=== PATIENT | male | born 1940 | race Caucasian/White ===

== ENCOUNTER 2024-10-21 16:24 | Inpatient (IN) | payer MEDICARE, SELFPAY ==
[2024-10-21] VITALS (16 sets, daily range): BP systolic 125–167; BP diastolic 49–117; BMI 25.1
--- NOTE | 2024-10-21 13:19 | W.PN.CARDCBS ---
Today's Communication / Plan
-
LHC
asa 243mg x1 now
echo in AM
cardiac rehab
Impression / Plan
-
This is the Cardiology Consult
Full Consult scanned into chart.
PCP: Melissa Lei MD
CDY: Emile Funez,
HPI: 84 y/o male, PMH sig for CAD w/prior RCA PCI (07/2015) with residual prox LAD disease medically managed. Had recurrent angina and no change on re-look cath 01/2016. Recently having dizziness and some falls, and worked up for orthostatic
hypotension. Other history includes HTN, HLD, Epistaxis/GIB,GERD, Lung Ca s/p RLL resection (2011), Thyroid Ca w/surgery (2000), daily ETOH (2 glasses of wine after dinner every night) as well as daily medical marijuana for chronic pain.
New onset bilateral arm heaviness/pressure, radiating to left chest, associated nausea, dyspnea. Refused to go to ER last night, but symptoms persisted overnight and this morning agreed to go to ER. EKG with incomplete LBBB and inferior ST
elevations w/lateral depressions. HS troponin up to 267. Started on IV heparin and given aspirin 81mg today. Transferred for [facility] today.
IMPRESSION/PLAN:
NSTEMI
CAD w/RCA PCI (2015)
prox LAD residual CAD, medically managed
HS troponin 267- trend to peak with CKs
[facility] today
aspirin 243mg now- he ran out at home this week and only given 81mg today
echo in AM
cardiac rehab
followup w/Dr. Funez at d/c
HTN- currently not on any BP meds-
monitor trends and add BB, josiah/arb if tolerated
watch for orthostasis-
HLD- check lipid profile
on rosuvastatin 10mg/daily
Prior GIB w/epistaxis/GERD- PPI, monitor while on DAPT
Elevated LFTs
compounded by daily ETOH- ongoing problem and encouraged pt to quit
monitor with statin therapy and adjust as needed
Hypomagnesemia/Hypokalemia- replaced at [facility], repeat in AM
Daily ETOH/medical marijuana- monitor for withdrawal- MSAS protocol
could be contributing to falls/orthostasis issues
CT brain done at [facility]- no evidence of hemorrhage/midline shift/mass effect.
Progress Note - Real Estate Developer
Subjective
Date of Service: October 21, 2024
[2024-10-21] MEDS: LOW STRENGTH ASPIRIN 243 MG PO (14:21)
--- NOTE | 2024-10-21 16:12 | ITS.CL.ANGIO ---
Web Solutions Architect - Angioplasty
Angioplasty
Procedure Report:
CARDIAC CATHETERIZATION REPORT
Date of Procedure: 10/21/2024
Referring: Aminah Cai PA-C
INDICATION: Non-ST elevation myocardial infarction
PROCEDURE:
1. Left heart catheterization.
2. Coronary angiography.
3. Successful PCI of subtotal mid RCA occlusion.
A total of 60 minutes of procedural/moderate sedation was utilized. An independent medical director was present to assist with and help manage the patient's level of consciousness and physiologic status.
ACCESS:
1. 6 Nepalese right radial artery using a modified Seldinger technique delete the.
CATHETERS:
1. 5 Nepalese JR4.
2. 5 Nepalese JL 3.5.
3. 6 Nepalese AL 0.75 guiding catheter.
HEMODYNAMIC DATA
Weight (kg): 80.2
AO (s/d/x, mmHg): 130/65/86
LV (s/x mmHg): 130/14
LEFT VENTRICULOGRAPHY: Not performed.
CORONARY ANGIOGRAPHY
Dominance: Right.
Left Main: Normal size, bifurcating vessel. There is no coronary artery disease.
LAD: Normal size vessel giving rise to several small diagonals. There is a long, 40% lesion in the proximal and mid LAD.
Ramus: Congenitally absent.
Circumflex: Normal size, nondominant vessel giving rise to 2 obtuse marginals. There is a 70% lesion in the proximal circumflex before the origin of OM1.
RCA: Large size, dominant vessel. There is a 99% subtotal occlusion in the mid RCA, immediately proximal to a previously placed stent with ELÍAS I flow.
INTERVENTION(S)
1. Successful PCI of the 99% subtotal occlusion of the mid RCA (Xience Skypoint 3.5 x 38 JESSICA, postdilated with a 4.0 NC balloon) with reduction in stenosis to 0%, restoring ELÍAS-3 flow.
Narrative:
The decision was made to proceed with percutaneous coronary intervention. The diagnostic catheter was removed over a wire and a 6Fr AL 0.75 guiding catheter was advanced to the aortic root and seated in the right coronary artery. Additional heparin
was given and a Power Turn Flex wire was advanced into the proximal RCA with a quick cross microcatheter in support. The quick cross microcatheter was used to support the power turn Flex wire traversing the RCA stenosis, which was possible with
some difficulty. The wire entered the distal vessel and the quick cross microcatheter was advanced into the distal vessel over the wire. The wire was initially withdrawn and micro angiography was performed through the quick cross microcatheter,
confirming intraluminal position. Once intraluminal position had been confirmed, the wire was readvanced through the quick cross and into the distal RCA. The quick cross microcatheter was subsequently removed using a wire pending technique. The
99% subtotal mid RCA lesion was predilated with a 2.0 x 12 semi-compliant balloon to 12 emil, restoring ELÍAS-3 flow. The decision was made to aggressively predilate the lesion which demonstrated its beginning at the proximal RCA. A 3.0 x 20
semicompliant balloon was advanced and the lesion was dilated to 12 emil. The semi-compliant balloon was removed and a Xience Skypoint 3.5 x 38 drug-eluting stent was advanced. Meticulous care was taken while positioning the stent, ensuring that
the entire lesion was covered. The stent was deployed at 12 atmospheres. The stent balloon was removed. A 3.5 x 20 noncompliant balloon was advanced into the stent and the stent was postdilated to 12 atmospheres. Angiography showed good stent
apposition with some underexpansion in the midportion. The 3.5 x 20 noncompliant balloon was withdrawn and a 4.0 x 15 noncompliant balloon was advanced. The entire stent length was postdilated to 12 emil. The noncompliant balloon was withdrawn.
Angiography was performed in orthogonal views, confirming good stent expansion and an excellent angiographic result. The coronary wire was withdrawn and the guide was disengaged from the artery. The catheter was removed over a standard J-wire.
Closure Device: Vascular band.
Radiation (mGy): 776
DAP (cm2.Gy): 36.2
Fluoroscopy time (minutes): 11.6
CONCLUSIONS
1. Right dominant circulation with a long, 40% lesion in the proximal/mid LAD, a 70% lesion in the proximal circumflex before the origin of OM1 and a 99%, subtotal occlusion of the mid RCA immediately proximal to a previously placed stent with ELÍAS
I flow, status post successful PCI (Xience Skypoint 3.5 x 38 JESSICA, postdilated with a 4.0 NC balloon) with reduction in stenosis to 0%, restoring ELÍAS-3 flow.
2. Mildly elevated filling pressures (LVEDP = 14 mmHg at 80.2 kg).
RECOMMENDATIONS:
1. Expectant management after cardiac catheterization via right radial approach.
2. Limited weight bearing on the right wrist for one week.
3. Dual antiplatelet therapy with aspirin and clopidogrel for at least 12 months, followed by aspirin indefinitely.
4. Aggressive secondary prevention with high-dose, high potency statin. Goal LDL <55.
5. OMT/GDMT as hemodynamics will tolerate.
6. Echocardiogram ordered and pending.
7. Referral to cardiac rehab.
Copy to: Aminah Cai PA-C, Emile Funez D.O., Velasquez Friedman M.D.
Emile Cortsé DO, FACC, FACP
[2024-10-21 16:17] LABS: ACT-LR - POC 326 Seconds (116-155)
[2024-10-21] MEDS: NSS 1000 IV (16:29)
--- NOTE | 2024-10-21 16:30 | PTCARENOTE ---
Pt received from analytical lab analyst s/p Stent to RCA via Right radial. Pt alert and oriented x4. States he has 'discomfort' in arm with BP cuff. Denies shortness of breath and nausea. GALICIA with equal strength throughout. SR with 1st degree AVB on tele with
rates in the 60s. BP 155/77. Heart tones audible. Bilateral radial and DP pulses palpable. No edema noted. POX 94% on Right index finger. Lungs clear. No cough. Abdomen soft, round, nontender. +BS. Pt states he feels constipated, hospitalist made
aware. Pt voided troy urine in the urinal. Right radial cath site with TR band intact, no bleeding, hematoma noted. Left isaacs scabs x3 noted. Left hand PIV and left arm PIV intact infusing NSS. See MAR for medication administration. See worklist
for complete nursing assessment. Plan of care reviewed. Pt's daughter at bedside.
[2024-10-21 16:41] LABS: Troponin I 8.150 ng/ml
--- NOTE | 2024-10-21 17:19 | HPS.HSE ---
Family Physician
-
Family Physician: Melissa Lei
Chief Complaint
-
Aching in both arms
History of Present Illness
84M with CAD s/p PCI 2016, lung cancer s/p RLL resection, thyroid cancer s/p surgery, chronic/daily EtOH use, orthosatic hypotension, medical marijuana use, presents as transfer from outside hospital with bilateral arm pain described as aching,
heaviness, severe, associated with nausea, that began on Monday night after dinner. He notes he had drank a glass of wine and suddenly both arms were in pain, he attempted to sleep but after 2 hours the pain had not resolved, and he called EMS and
sent to [facility] and found to have NSTEMI. He was transferred here and underwent LHC, and was found to have 99% subtotal occlusion of mid RCA which was treated with PCI. He currently denies any chest pain, palpitations, dyspnea,
feverishness, chills, nausea, abdominal pain. His daughter is at bedside and note that states that he is a chronic daily drinker, and has had alcohol withdrawal in the past when he has been hospitalized.
Medical History
Past Medical History
Past Medical History: Reports Other
Additional Past Medical History:
HLD
GERD
Alcohol use
Anxiety and depression
BPH
Hypothyroidism
CAD
HTN
Orthostatic hypotension
Spinal stenosis
History of lung cancer
History of thyroid cancer
Past Surgical History: Reports Other
Additional Past Surgical History:
Cardiac stenting
Cataract
Spinal laminectomy
RLL lung resection
Mohs surgery
Tonsillectomy
Total thyroidectomy
Social History
Tobacco: Former Smoker (Heavy use quit when he had his lung surgery)
Alcohol: Daily (Drinks 2 to 3 large glasses of wine per day)
Drug: Marijuana (Medical marijuana)
Personal:
Living: Other (His daughter cares for him and his )
Employment: Retired
Family History
Family History: Other (Mother had a brain tumor)
Allergies / Home Medications
Allergies reflects when Allergies were last updated in [facility].
Home Medications with original date entered in [facility]
Allergy/Medication List:
Allergies
Allergy/AdvReac Type Severity Reaction Status Date / Time
latex Allergy Unknown Rash Verified 10/21/24 14:20
Home Medications
aspirin 81 mg chewable tablet 81 mg PO DAILY 07/22/15
bupropion HCl 150 mg 24 hr tablet, extended release 150 mg PO BID 07/22/15
levothyroxine 150 mcg tablet 150 mcg PO DAILY 07/22/15
nitroglycerin 400 mcg/spray translingual 1 spray sublingual PRN PRN chest pain 07/22/15
pantoprazole 40 mg tablet,delayed release 40 mg PO DAILY #90 tabs 07/22/15
acetaminophen 325 mg tablet 325 mg PO Q4HPRN PRN DISCOMFORT 01/08/16
trazodone 100 mg tablet 50 mg PO HS 02/03/17
Medical Marijuana 1 dose PO DAILY PRN Pain 10/21/24
cholecalciferol (vitamin D3) 50 mcg (2,000 unit) capsule (Vitamin D3) 50 mcg PO HS 10/21/24
citalopram 20 mg tablet (Celexa) 20 mg PO DAILY 10/21/24
cyanocobalamin (vitamin B-12) 1,000 mcg tablet (Vitamin B-12) 1,000 mcg PO HS 10/21/24
ferrous sulfate 325 mg (65 mg iron) tablet (Iron (ferrous sulfate)) 325 mg PO HS 10/21/24
folic acid 1 mg tablet 1 mg PO HS 10/21/24
midodrine 2.5 mg tablet 2.5 mg PO BID 10/21/24
mirtazapine 7.5 mg tablet 7.5 mg PO HS 10/21/24
rosuvastatin 10 mg tablet 10 mg PO DAILY 10/21/24
tamsulosin 0.4 mg capsule 0.4 mg PO HS 10/21/24
Review of Systems
-
A 12 point ROS was completed and negative except as noted: Yes
Physical Exam
Vital Signs
Vital Signs
Temp Pulse Resp BP Pulse Ox
97.7 F 61 18 158/75 98
10/21/24 17:08 10/21/24 17:08 10/21/24 17:08 10/21/24 16:30 10/21/24 17:08
Physical Exam
General: No Apparent Distress
HEENT: Moist mucous membranes, PERRLA and Other (Black eddie on tongue patient states is chronic)
Respiratory: Clear; No Wheezes, Rales, Rhonchi or Crackles
Cardiac: S1/S2 and Regular Rhythm; No Murmur or Rub
GI: Soft, Non Tender, Non Distended and Normal Bowel Sounds; No Organomegaly
Rectal: Deferred by Provider
Musculoskeletal: No Clubbing, No Cyanosis and No Edema
Skin: Warm, Dry and IV/Catheter Site (Right arm cath site with band, right hand with purpleish discoloration, pulses intact); No Rash
Neuro: Awake, AO x 3 and Nonfocal/grossly intact
Hematologic/Lymphatic: No Lymphadenopathy
Psych: Calm
Laboratory Results
-
Laboratory Results
Troponin I 8.150 ng/ml H* 10/21/24 16:01
Data Reviewed
-
Lab Data: Labs Reviewed by me ([facility]H labs reviewed. Unremarkable other than elevated troponin and mildly elevated AST, ALT)
Impression/Plan
-
IMPRESSION:
84M with CAD p/w NSTEMI, s/p LHC w/ PCI/stent.
PLAN:
1. NSTEMI
s/p LHC w/ PCI/stent of 99% subtotal occlusion of mid RCA.
Cardiology managing
Aspirin/Plavix
Continue statin. Monitor LFTs. Check lipid panel
Echo pending
Outpatient cardiology follow-up
2. HTN
BP currently elevated 150s
Per cardiology BB/AGUSTINA/ARB when indicated, patient noted to have orthostatic hypotension and uses midodrine, currently on hold
3. Chronic daily alcohol use
Elevated LFTs
Monitor for alcohol withdrawal as this has been an issue in previous hospitalizations
Ativan as needed
4. Orthostatic hypotension
Patient has been having falls, had a bad fall that led to spinal fracture, required neck surgery 2018 has been following with neurology as he gets dizzy
Holding midodrine as currently hypertensive but resume if necessary
5. GERD
PPI
6. Hypothyroidism
Continue levothyroxine 100 mcg
7. BPH
Tamsulosin
8. Depression
Bupropion, Celexa
DVT PPx HSQ
Full code
[2024-10-21] MEDS: WELLBUTRIN XL (24 hour extended release) 150 MG PO (19:40)
[2024-10-21] MEDS: FOLVITE 1 MG PO (22:25)
[2024-10-21] MEDS: FLOMAX 0.4 MG PO (22:25)
[2024-10-21] MEDS: FEOSOL 325 MG PO (22:25)
[2024-10-21] MEDS: REMERON 7.5 MG PO (22:25)
[2024-10-21] MEDS: DESYREL 50 MG PO (22:25)
[2024-10-21] MEDS: MELATONIN 5 MG PO (23:10)
--- NOTE | 2024-10-21 23:50 | PTCARENOTE ---
Patient received at change of shift resting in the bed. Right radial TR band intact, removed per protocol without incident. Radial pulse palpable. Gauze and tegaderm applied. Discussed with patient activity restrictions but does require frequent
reinforcement as he is forgetful and does not always follow activity restrictions. Sinus rhythm with first degree AV block on telemetry. Oxygen saturation 98% on room air. The patient is AOx3 but is forgetful, bed alarm armed. Bed in lowest
position, wheels locked. Call [place] within reach.
The patient was later requesting Ativan which he states he takes 'a couple' at home to help him sleep. Discussed with patient that he does not have PRN Ativan ordered for sleep but does have PO Ativan and diazepam IV should the MSAS protocol require
it. The patient was insistent that he was told by someone who he could not name specifically that he would be able to get it when he needed it. Stated his family doctor prescribes it so how can he not receive here if his family doctor prescribes it.
Discussed extensively with patient multiple times regarding the MSAS protocol and what dictates which medications he may receive according to the scale and that these medications may not be administered for reasons other than which they have been
prescribed while he is here. The patient was angry, agitated, and yelling at staff. He was also asking other staff members including the PCT to get him Ativan. A one time dose of PRN melatonin was ordered which the patient was agreeable to take.
During this time the patient's right radial cath site was also noted to be oozing, manual pressure was held and a new dressing was applied. Radial pulse palpable, surrounding ecchymosis is soft to palpation. No evidence of a hematoma noted.
Reinforced activity restrictions with the patient.
Upon later reassessment the patient was asleep. The right radial cath site is C/D/I, no further oozing noted. Care ongoing.
[2024-10-22 02:50] VITALS: BP 130/91
[2024-10-22 03:34] LABS: Hematocrit 38.0 % (39.0-52.0); Hemoglobin 13.4 g/dL (13.0-18.0); Mean Corp Hgb Conc. 35.3 g/dL (33.0-37.0); Mean Corpuscular Volume 96.9 fL (80.0-94.0); Platelet Count 197 10^3/uL (130-400); Red Cell Dist. Width 13.1 % (11.5-14.5)
[2024-10-22 03:59] LABS: ALT (SGPT) 51 U/L (0-50); AST (SGOT) 83 U/L (17-59); Albumin 3.2 g/dl (3.5-5.0); Alkaline Phosphatase 71 U/L (38-126); Blood Urea Nitrogen 14 mg/dl (9-20); Calcium 8.8 mg/dl (8.4-10.2); Carbon Dioxide 22 mmol/L (22-30); Chloride 108 mmol/L (98-107); Estimated Creatinine Clearance 84 ml/min; Glucose 101 mg/dl (70-99); HDL Cholesterol 62 mg/dl; LDL Cholesterol, Calculated 64 mg/dl; Magnesium 2.0 mg/dl (1.6-2.3); Potassium 3.9 mmol/L (3.5-5.1); Sodium 133 mmol/L (135-145); Total Protein 5.5 g/dl (6.3-8.2); Very Low Density Lipoprotein 21 mg/dl (0-30); eGFR > 60.00
[2024-10-22 04:14] LABS: Troponin I 8.650 ng/ml
[2024-10-22] MEDS: SYNTHROID 100 MCG PO (06:08)
[2024-10-22 06:29] LABS: ACT-LR - POC > 397 Seconds (116-155)
[2024-10-22 07:22] VITALS: BP 146/72
[2024-10-22] MEDS: LOW STRENGTH ASPIRIN 81 MG PO (08:53)
[2024-10-22] MEDS: CELEXA 20 MG PO (08:53)
[2024-10-22] MEDS: WELLBUTRIN XL (24 hour extended release) 150 MG PO (08:53)
[2024-10-22] MEDS: PLAVIX 75 MG PO (08:53)
[2024-10-22] MEDS: PROTONIX 40 MG PO (08:53)
[2024-10-22] MEDS: CRESTOR 10 MG PO (08:53)
[2024-10-22] MEDS: VITAMIN B1 100 MG PO (08:54)
--- NOTE | 2024-10-22 09:27 | PTCARENOTE ---
received patient in bed, bed alarm on, patient has poor short term memory, not new. monitor shows NSR with a first degree, VSS. right radial cath site bruised , good palpable pulse. 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 MSAS as per protocol.
--- NOTE | 2024-10-22 09:51 | W.PN.CD ---
Today's Communication / Plan
-
Continue DAPT
Increase rosuvastatin to 20 mg daily.
Start metoprolol succinate 50 mg daily
Stop midodrine. He has been very hypertensive this admission.
He will follow-up with his outpatient ship surveyor on .
Impression / Plan
-
NSTEMI
- [facility] 10/21/2024: 40% proximal/mid LAD, 70% proximal LCx, 99% subtotal occlusion of mid RCA s/p JESSICA; LVEDP 14 mmHg at 80.2 kg
- Limited weightbearing on right wrist for 1 week
- Continue aspirin and clopidogrel for 12 months followed by aspirin indefinitely
- Increase rosuvastatin to 20 mg daily; LDL goal less than 55
- Start metoprolol succinate 50 mg daily
- Follow-up echo
- Cardiac rehab
- He has follow-up with his OP ship surveyor on
HTN
- He is on midodrine at home but has been very hypertensive here
- Stop midodrine
- Add metoprolol 50 mg as above
Prior GIB w/epistaxis/GERD- PPI, monitor while on DAPT
Elevated LFTs
compounded by daily ETOH- ongoing problem and encouraged pt to quit
monitor with statin therapy and adjust as needed
Hypomagnesemia/Hypokalemia- replaced at [facility], repeat in AM
Daily ETOH/medical marijuana- monitor for withdrawal- MSAS protocol
could be contributing to falls/orthostasis issues
CT brain done at [facility]- no evidence of hemorrhage/midline shift/mass effect.
Subjective: Feels great. No recurrence of chest discomfort. Would like to go home today. Asymptomatic 10 beat run of NSVT on telemetry.
Physical Exam
Vital Signs/Labs
Vital Signs
Temp Pulse Resp BP Pulse Ox
97.8 F 71 13 146/72 95
10/22/24 07:20 10/22/24 08:53 10/22/24 07:20 10/22/24 08:53 10/22/24 07:20
10/21/24 10/22/24 10/23/24
06:59 06:59 06:59
Actual Weight 174 lb 13.225 oz
10/22/24 03:00
10/22/24 03:00
Magnesium 2.0 mg/dl (1.6-2.3) 10/22/24 03:00
Triglycerides 109 mg/dl (10-149) 10/22/24 03:00
LDL Cholesterol, Calc 64 mg/dl 10/22/24 03:00
VLDL Cholesterol, Calc 21 mg/dl (0-30) 10/22/24 03:00
HDL Cholesterol 62 mg/dl 10/22/24 03:00
LAB Results
10/21/24 10/22/24
16:01 03:00
Troponin I 8.150 H* 8.650 H*
Physical Exam
Constitutional: No acute distress and Comfortable
Cardiovascular: Rhythm & rate is regular, Pedal edema is absent, S1S2 is normal and Murmur/rub/gallop absent
Respiratory: Respiratory effort normal and Lungs clear to auscul.
Neuro/Psych: AO x 3
Other: Cath Site (R wrist ok. No swelling, erythema or tenderness)
Data Reviewed
-
Date of Service: October 22, 2024
Medical Decision Making: Reviewed Test Results, Independent Historian Assessment, Test Interpretation and Review of Case with other Provider
EKG: Tracing Personally Visualized and interpreted
Labs: Labs Reviewed by me
--- NOTE | 2024-10-22 10:07 | CARDSERVLU ---
Echocardiogram with [facility] completed after protocol screening completed. Allergies verified.
Patent IV site: _left hand____
IV site flushed with 0.9% NaCl pre and post administration.
Diluted bolus method utilized to enhance visualization of ventricular camargo.
Total volume given: _1.5___ mL
Patient tolerated all procedures well without complications.
[2024-10-22] MEDS: TOPROL XL 50 MG PO (10:39)
[2024-10-22] MEDS: XANAX 0.5 MG PO (11:23)
[2024-10-22 11:35] VITALS: BP 135/81
--- NOTE | 2024-10-22 11:39 | PTCARENOTE ---
patient called out numerous times stating that he needs Xanax for his anxiety which he takes at home. TT Dr. Mccabe, ordered Xanar and given as ordered.
[2024-10-22] MEDS: SENOKOT-S 1 TABLET PO (12:00)
--- NOTE | 2024-10-22 13:15 | W.DCSUMMARY ---
Discharge Summary
Discharge Data
Date of Admission: 10/21/24
Date of Discharge: 10/22/24
Total time spent discharging patient (in min): 31
-
Pending Results: No
Hospital Course
Discharge diagnosis:
NSTEMI
Consults:
Interventional cardiology
Procedures:
LHC 10/21/2024: 40% proximal/mid LAD, 70% proximal LCx, 99% subtotal occlusion of mid RCA s/p JESSICA
Hospital course:
84M with CAD s/p PCI 2015, lung cancer s/p RLL resection, thyroid cancer s/p surgery, chronic/daily EtOH use, orthosatic hypotension, medical marijuana use, presents as transfer from outside hospital with bilateral arm pain, found to have NSTEMI,
transferred to and underwent LHC, PCI with stent as above. He was monitored overnight and had echocardiogram in the morning. he had hypertension so his midodrine was discontinued. He was started on metoprolol and his rosuvastatin was
increased, he was also started on aspirin and clopidogrel. He was discharged with outpatient cardiac follow-up. He was advised to stop drinking alcohol.
Discharge exam:
General: No Apparent Distress
HEENT: Moist mucous membranes, PERRLA and Other (Black eddie on tongue patient states is chronic)
Respiratory: Clear; No Wheezes, Rales, Rhonchi or Crackles
Cardiac: S1/S2 and Regular Rhythm; No Murmur or Rub
GI: Soft, Non Tender, Non Distended and Normal Bowel Sounds; No Organomegaly
Rectal: Deferred by Provider
Musculoskeletal: No Clubbing, No Cyanosis and No Edema
Skin: Warm, Dry; No Rash
Neuro: Awake, AO x 3 and Nonfocal/grossly intact
Hematologic/Lymphatic: No Lymphadenopathy
Psych: Calm
Discharge Plan
-
Patient Disposition: Home (Routine Discharge)
Discharge Diagnosis/Procedures: NSTEMI, s/p angioplasty and stent to Right Coronary artery
Diet: Low Cholesterol and Low Sodium
Activity: As tolerated
Bathing Restrictions: None
Other Services: Cardiac Rehab
Activity Restrictions/Additional Instructions:
You came to the hospital and were found to have heart attack, you were taken to the [facility] and had a stent placed in a 99% occluded artery. You will be on aspirin and Plavix to keep the stent open. Your midodrine has been stopped because your
blood pressures have been high and you are now on a new medication called a beta-kristian. Your cholesterol medication rosuvastatin has been increased. You have a follow-up with a electromechanical inspector on . Stop drinking as it will prevent your
heart from healing and will worsen heart disease.
Instructions: Heart attack, Alcohol and your health
Stand Alone Forms: DC Instructions- Cath/EP Lab
Referrals:
Emile Funez DO [Non-Admitting Privileges, Cardiology] - in two to four weeks
Melissa Lei MD [Family Provider, Family Practice]
Prescriptions:
New
metoprolol succinate 50 mg Tablet Extended Release 24 Hr
50 mg PO DAILY Qty: 30 0RF
clopidogrel 75 mg Tablet
75 mg PO DAILY Qty: 30 0RF
rosuvastatin 10 mg Tablet
20 mg PO DAILY 30 Days Qty: 60 0RF
thiamine mononitrate (vit B1) 100 mg Tablet
100 mg PO DAILY Qty: 30 0RF
Continued
levothyroxine 150 MCG tablet
100 mcg PO DAILY
nitroglycerin 1 BOTTLE spray,non-aerosol
1 spray sublingual PRN PRN (Reason: chest pain)
aspirin 81 MG tablet,chewable
81 mg PO DAILY
bupropion HCl 150 MG tablet extended release 24 hr
150 mg PO BID
pantoprazole 40 MG tablet,delayed release (DR/EC)
40 mg PO DAILY Qty: 90 3RF
acetaminophen 325 MG tablet
325 mg PO Q4HPRN PRN (Reason: DISCOMFORT)
trazodone 100 MG tablet
50 mg PO HS
cyanocobalamin (vitamin B-12) [Vitamin B-12] 1,000 mcg Tablet
1,000 mcg PO HS
citalopram [Celexa] 20 mg Tablet
20 mg PO DAILY
tamsulosin 0.4 mg Capsule
0.4 mg PO HS
ferrous sulfate [Iron (ferrous sulfate)] 325 mg (65 mg iron) Tablet
325 mg PO HS
folic acid 1 mg Tablet
1 mg PO HS
mirtazapine 7.5 mg Tablet
7.5 mg PO HS
cholecalciferol (vitamin D3) [Vitamin D3] 50 mcg (2,000 unit) Capsule
50 mcg PO HS
Medical Marijuana
1 dose PO DAILY PRN (Reason: Pain)
alprazolam [Xanax] 0.5 mg Tablet
0.5 mg PO BID PRN (Reason: anxiety)
Discontinued
midodrine 2.5 mg Tablet
2.5 mg PO BID
rosuvastatin 10 mg Tablet
10 mg PO DAILY
Discharge Orders:
Discharge Patient (As Directed); Ordered 10/22/24
Ordered By: Corinne Mccabe
Care Plan Goals
Care Plan Goals:
Problem: Readiness for enhanced knowledge related to diagnosis and treatment plan
Goal: Understand your diagnosis and treatment plan needs, including medications if applicable.
Instructions: Know your diagnosis, underlying causes and treatment plan options, including medications if applicable. Consult with your health care team to learn about your diagnosis and treatment plan, including medications if applicable.
Discharge Date and Time
Print Language: COMORAN
[2024-10-22 14:32] VITALS: BP 135/79
--- NOTE | 2024-10-22 14:41 | CM ---
Reviewed chart. Met with Mr. Real to review discharge plans. He states prior to admission he resides with his spouse and youngest daughter in a one story home without any steps to enter. He states prior to admission he ambulates with a single
point cane. He states he has a single point cane and no other DDME in the home. He states he has a prescription. Medical work-up in progress. The discharge plan is to return home with his spouse and daughter when medically stable.
--- NOTE | 2024-10-22 15:49 | PTCARENOTE ---
D/C instructions given to patient and daughter both verbalizes understanding. INT x 2 D/C'd, telemetry D/C'd, personal belongings packed and sent home with patient. D/C to home [facility] accompanied by staff.
== END 2024-10-22 15:30 | disposition home or self-care (01) | DRG 322 ==
LOC: IVU 16:24
PROVIDERS: Internal Medicine Cardiovascular Disease; Nurse Practitioner; ADMITTING PHYSICIAN Internal Medicine; ATTENDING PHYSICIAN Internal Medicine; FAMILY PHYSICIAN Family Medicine
PROC: 027034Z Dilation of Coronary Artery, One Artery with Drug-eluting Intraluminal Device, Percutaneous Approach (ICD-10-PCS; 2024-10-21)
PROC: 4A023N7 Measurement of Cardiac Sampling and Pressure, Left Heart, Percutaneous Approach (ICD-10-PCS; 2024-10-21)
PROC: B2111ZZ Fluoroscopy of Multiple Coronary Arteries using Low Osmolar Contrast (ICD-10-PCS; 2024-10-21)
DX: I21.4 Non-ST elevation (NSTEMI) myocardial infarction (principal); I25.10 Atherosclerotic heart disease of native coronary artery without angina pectoris; F12.90 Cannabis use, unspecified, uncomplicated; E78.5 Hyperlipidemia, unspecified; K21.9 Gastro-esophageal reflux disease without esophagitis; F32.A Depression, unspecified; F41.9 Anxiety disorder, unspecified; N40.0 Benign prostatic hyperplasia without lower urinary tract symptoms; E89.0 Postprocedural hypothyroidism; E83.42 Hypomagnesemia; E87.6 Hypokalemia; F10.90 Alcohol use, unspecified, uncomplicated; I10 Essential (primary) hypertension; R29.6 Repeated falls; I95.1 Orthostatic hypotension; Z85.850 Personal history of malignant neoplasm of thyroid; Z85.118 Personal history of other malignant neoplasm of bronchus and lung; Z90.2 Acquired absence of lung [part of]; Z87.891 Personal history of nicotine dependence; Z91.040 Latex allergy status; Z79.82 Long term (current) use of aspirin; Z79.890 Hormone replacement therapy
CPT/HCPCS: 80053; 80061; 83735; 84484; 85027; 85347; 93005; 93306; 93458; 99152; 99153; C1725; C1874; C1887; C1894; C9600; Q9950; Q9967

== ENCOUNTER 2024-12-02 16:10 | Outpatient (RCR) | payer MEDICARE, SELFPAY | END 2024-12-02 23:59 | disposition home or self-care (01) | LOC: CRHB 16:10 | PROVIDERS: ATTENDING PHYSICIAN Internal Medicine Cardiovascular Disease | DX: I25.2 Old myocardial infarction (principal); I25.10 Atherosclerotic heart disease of native coronary artery without angina pectoris; Z95.5 Presence of coronary angioplasty implant and graft | CPT/HCPCS: G0422; G0423 ==

== ENCOUNTER 2025-01-01 15:34 | Outpatient (RCR) | payer MEDICARE, SELFPAY | END 2025-01-01 23:59 | disposition home or self-care (01) | LOC: CRHB 15:34 | PROVIDERS: ATTENDING PHYSICIAN Internal Medicine Cardiovascular Disease; FAMILY PHYSICIAN Family Medicine | DX: I25.2 Old myocardial infarction (principal); I21.4 Non-ST elevation (NSTEMI) myocardial infarction; Z95.5 Presence of coronary angioplasty implant and graft; I25.10 Atherosclerotic heart disease of native coronary artery without angina pectoris | CPT/HCPCS: G0422; G0423 ==

== ENCOUNTER 2025-01-27 15:46 | Outpatient (RCR) | payer MEDICARE, SELFPAY | END 2025-01-27 23:59 | disposition home or self-care (01) | LOC: CRHB 15:46 | PROVIDERS: ATTENDING PHYSICIAN Internal Medicine Cardiovascular Disease; FAMILY PHYSICIAN Family Medicine | DX: I25.2 Old myocardial infarction (principal); I21.4 Non-ST elevation (NSTEMI) myocardial infarction (principal); I25.10 Atherosclerotic heart disease of native coronary artery without angina pectoris; Z95.5 Presence of coronary angioplasty implant and graft | CPT/HCPCS: G0422; G0423 ==

== ENCOUNTER 2025-02-24 16:26 | Outpatient (RCR) | payer MEDICARE, SELFPAY | END 2025-02-24 23:59 | disposition home or self-care (01) | LOC: CRHB 16:26 | PROVIDERS: ATTENDING PHYSICIAN Internal Medicine Cardiovascular Disease; FAMILY PHYSICIAN Family Medicine | DX: I25.2 Old myocardial infarction (principal); I21.4 Non-ST elevation (NSTEMI) myocardial infarction; I25.10 Atherosclerotic heart disease of native coronary artery without angina pectoris; Z95.5 Presence of coronary angioplasty implant and graft | CPT/HCPCS: G0422; G0423 ==